=== PATIENT | female | born 2000 | race Caucasian/White ===

== ENCOUNTER 2020-01-30 20:46 | Emergency (ER) | payer MEDICAID, SELFPAY ==
[2020-01-30 21:05] VITALS: BP 130/85; PULSE 82; RESP 16; TEMP 37; O2SAT 98
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
[2020-01-30] MEDS: traMADol HCL 50 MG TABLET PO (21:32)
[2020-01-30 21:34] VITALS: BP 128/85; PULSE 80; RESP 20; O2SAT 99
== END 2020-01-30 21:36 | disposition home or self-care (01) ==
PROVIDERS: Emergency Provider Family Medicine; PCP Family Medicine
DX: H92.02 Otalgia, left ear (principal); Z86.2 Personal history of diseases of the blood and blood-forming organs and certain disorders involving the immune mechanism
CPT/HCPCS: 99283; A9270

== ENCOUNTER → 2020-02-15 08:02 | Outpatient (CLI) | payer OTHER, SELFPAY ==
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
== END ==
PROVIDERS: PCP Family Medicine; Visit Provider Orthopaedic Surgery
DX: S49.92XA Unspecified injury of left shoulder and upper arm, initial encounter (principal); X58.XXXA Exposure to other specified factors, initial encounter
CPT/HCPCS: 23350; 73222; 77002; A9577; Q9966

== ENCOUNTER 2020-06-04 10:12 | Emergency (ER) | payer OTHER, SELFPAY ==
[2020-06-04] VITALS (29 sets, daily range): BP systolic 108–151; BP diastolic 65–94; PULSE 76–96; RESP 0–26; TEMP 36.7; O2SAT 98–100
--- NOTE | ~2020-06-04 | XR_ITS ---
EXAMINATION: XR chest 1V portable DATE: 06/04/2020 12:42 INDICATION: Shortness of breath TECHNIQUE: frontal view of the chest was obtained. COMPARISON: None FINDINGS: The lungs are clear with no focal airspace opacities, pulmonary edema, pleural effusion or pneumothor ax. The cardiomediastinal silhouette is normal. Visualized bones and soft tissues are unremarkable. IMPRESSION: 1. Normal chest radiograph. Reviewed, dictated and finalized at location A. TOLOGIST IMPRESSION: 1. Normal chest radiograph.
--- NOTE | 2020-06-04 10:42 | ECG_ITS ---
Measurements Intervals [place] Rate: 85 P: 37 AR: 143 QRS: -9 QRSD: 97 T: 17 QT: 365 QTc: 434 Interpretive Statements SINUS RHYTHM DELAYED PRECORDIAL R/S TRANSITION BASELINE ARTIFACT- I, II, AVR, V1 BORDERLINE ECG Electronically Signed On 06-04-2020 14:01:38 SWITCHBOARD OPERATOR RECEPTIONIST by Sunny Paulson D.O.
--- NOTE | 2020-06-04 12:40 | ED.URI ---
HPI - URI/Sore Throat General Chief Complaint: Upper Respiratory Infection Stated Complaint: URI SYMPTOMS Time Seen by Provider: 06/04/20 10:56 Source: patient Mode of arrival: ambulatory Limitations: no limitations History of Present Illness HPI Narrative: Patient is a 20-year-old female who presents complaining of chest tightness, shortness of breath and cough. She reports exposure to Covid last week. She reports negative Covid test on 05/23 and reports symptoms resolved. She reports no symptoms of chest tightness, cough, shortness of breath and body aches started approximately 48 hours ago. She denies fever. She denies other complaints. MD elicited complaint: cough Related Data Allergies Allergy/AdvReac Type Severity Reaction Status Date / Time No Known Allergies Allergy Verified 03/18/20 15:33 Review of Systems Review of Systems: Narrative: CONSTITUTIONAL: Denies fever, chills, or sweats. EYES: Denies visual changes, redness, or discharge. ENT: Denies rhinorrhea, congestion, sore throat, or otalgia. CARDIOVASCULAR: Denies chest pain, palpitations, or edema. RESPIRATORY: Reports cough, dyspnea and chest tightness. GASTROINTESTINAL: Denies abdominal pain, nausea, vomiting, or diarrhea. GENITOURINARY: Denies dysuria or hematuria. SKIN: Denies rash or itching. MUSCULOSKELETAL: Denies back pain, joint pain, or myalgia. NEUROLOGIC: Denies headache, numbness, dizziness, or weakness. PSYCHIATRIC: Denies anxiety or depression. 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 HEAD: Normocephalic, atraumatic. EYES: EOMI. No redness or drainage. Conjunctiva are normal. ENT: Mucous membranes pink and moist. NECK: AROM. Supple. No lymphadenopathy. CHEST: No respiratory distress. Clear to auscultation. HEART: Regular rate and rhythm. No murmur appreciated. EXTREMITIES: Normal range of motion. No edema. SKIN: Warm, dry, no rash. NEURO: No focal deficits. Alert and oriented x3. Gait steady. PSYCH: Normal affect. No signs of depression or anxiety. Course Vital Signs Vital signs: Vital Signs Pulse Oximetry 99 06/04/20 10:32 Temperature 36.7 C 06/04/20 10:37 Pulse Rate 81 06/04/20 12:30 Respiratory Rate 20 06/04/20 12:30 Blood Pressure 111/65 06/04/20 12:16 Pulse Oximetry 100 06/04/20 12:30 Reviewed MDM - URI/Sore Throat MDM Narrative Medical decision making narrative: Patient's EKG and chest x-ray are normal. Patient had Covid testing performed in the emergency department. Patient is aware of the need to quarantine until Covid testing results return. Patient's vital signs are stable at this time, patient is aware that if she has increased chest pain or shortness of breath, that she is to return to the emergency department immediately for further evaluation. Patient is stable for discharge home with outpatient follow-up as discussed. Differential Diagnosis Differential diagnosis: Likely upper respiratory infection, viral infection, influenza and other (Covid) Lab Data Labs: Lab Results 06/04/20 Range/Unit
[2020-06-04 20:08] LABS: SARS-CoV-2 RNA PCR Positive
== END 2020-06-04 13:49 | disposition home or self-care (01) ==
PROVIDERS: Emergency Provider Nurse Practitioner; PCP Family Medicine
DX: U07.1 COVID-19 (principal); J06.9 Acute upper respiratory infection, unspecified; Z86.2 Personal history of diseases of the blood and blood-forming organs and certain disorders involving the immune mechanism; R94.31 Abnormal electrocardiogram [ECG] [EKG]
CPT/HCPCS: 71045; 93005; 99283; C9803; U0003

== ENCOUNTER 2020-08-17 09:19 | Outpatient (CLI) | payer OTHER, SELFPAY | END 2020-08-17 09:20 | disposition home or self-care (01) | LOC: ANHCOVIDVC 09:19 | PROVIDERS: PCP Family Medicine | DX: Z23 Encounter for immunization (principal) | CPT/HCPCS: 0001A; 91300 ==

== ENCOUNTER 2020-09-07 09:17 | Outpatient (CLI) | payer OTHER, SELFPAY | END 2020-09-07 09:18 | disposition home or self-care (01) | LOC: ANHCOVIDVC 09:17 | PROVIDERS: PCP Family Medicine | DX: Z23 Encounter for immunization (principal) | CPT/HCPCS: 0002A; 91300 ==

== ENCOUNTER 2020-12-08 03:17 | Emergency (ER) | payer OTHER, SELFPAY ==
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
[2020-12-08 03:28] VITALS: BP 127/85; PULSE 85; RESP 16; TEMP 36.7; O2SAT 97
[2020-12-08] MEDS: IPRATROPIUM BR 0.02% INH SOLN 0.5 MG/2.5 ML VIAL INHALATION (03:50)
[2020-12-08] MEDS: ALBUTEROL SULFATE NEB 2.5 MG/0.5 ML INH 5 MG INHALATION (03:50)
[2020-12-08 03:51] VITALS: PULSE 90; RESP 20
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
[2020-12-08 03:57] VITALS: PULSE 73; RESP 16
[2020-12-08 05:34] VITALS: BP 125/82; PULSE 85; RESP 16; O2SAT 98
== END 2020-12-08 05:35 | disposition home or self-care (01) ==
PROVIDERS: Emergency Provider Emergency Medicine; PCP Family Medicine
DX: S16.1XXA Strain of muscle, fascia and tendon at neck level, initial encounter (principal); V40.6XXA Car passenger injured in collision with pedestrian or animal in traffic accident, initial encounter
CPT/HCPCS: 70450; 72125; 94640; 99284; L0140

== ENCOUNTER → 2021-03-29 02:35 | Outpatient (CLI) | payer OTHER, SELFPAY ==
[2021-03-29 17:35] LABS: SARS-CoV-2 RNA PCR Negative
== END ==
PROVIDERS: PCP Family Medicine; Visit Provider Physician Assistant Medical
DX: R05.9 Cough, unspecified (principal); R09.81 Nasal congestion; J34.89 Other specified disorders of nose and nasal sinuses
CPT/HCPCS: C9803; U0003; U0005

== ENCOUNTER 2021-08-18 10:38 | Outpatient (CLI) | payer OTHER, SELFPAY ==
--- NOTE | ~2021-08-18 | US_ITS ---
EXAMINATION: US pelvic complete DATE: 08/18/2021 11:42 INDICATION: Abnormal uterine bleeding Comparison:No prior studies for comparison. TECHNIQUE: Multiple transabdominal sonographic images of the pelvis performed. FINDINGS: The uterus measures 3.9 x 2.9 x 1.9 cm. The endometrial complex measures 5.5 mm. The right ovary measures 3.9 x 2.9 x 1.9 cm and the left ovary measures 2.2 x 1.8 x 1 cm. There is a 2.8 cm right ovarian cyst. There are small follicles in each ovary. Normal doppler signal in both ova sushma. There is no free fluid in the pelvis. There are no abnormal masses seen on either side. IMPRESSION: 1. Right ovarian cyst measuring 2.8 cm. Reviewed, dictated and finalized at location B.
== END 2021-08-18 10:39 | disposition home or self-care (01) ==
PROVIDERS: PCP Family Medicine; Visit Provider Nurse Practitioner
DX: N93.8 Other specified abnormal uterine and vaginal bleeding (principal); N83.201 Unspecified ovarian cyst, right side
CPT/HCPCS: 76856

== ENCOUNTER 2021-09-29 10:39 | Outpatient (CLI) | payer OTHER, SELFPAY ==
--- NOTE | ~2021-09-29 | US_ITS ---
EXAMINATION: US pelvic complete w TV DATE: 09/29/2021 11:36 INDICATION: Right ovarian cyst TECHNIQUE: Multiple transabdominal and endovaginal sonographic images of the pelvis were obtained. COMPARISON: 08/18/2021 FINDINGS: The uterus measures 10.1 x 4.8 x 3.3 cm. The endometrial complex measures 4 mm. The right o vary measures 2.2 x 1.7 x 1.2 cm. The left ovary measures 2.5 x 1.1 x 1.6 cm. There is normal vascula r flow in the ovaries. There is no free fluid in the pelvis. IMPRESSION: 1. Normal pelvic ultrasound. Reviewed, dictated and finalized at location B.
== END 2021-09-29 10:40 | disposition home or self-care (01) ==
LOC: ANHIMG 10:41
PROVIDERS: PCP Family Medicine; Visit Provider Obstetrics & Gynecology Gynecology
DX: N83.201 Unspecified ovarian cyst, right side (principal)
CPT/HCPCS: 76830; 76856

== ENCOUNTER 2022-06-11 08:58 | Outpatient (CLI) | payer OTHER, SELFPAY ==
--- NOTE | ~2022-06-11 | US_ITS ---
EXAMINATION: US abdomen limited DATE: 06/11/2022 09:35 INDICATION: Right upper quadrant pain TECHNIQUE: Multiple grayscale and Doppler ultrasound images of the abdomen were obtained. COMPARISON: None available FINDINGS: The head and body of the pancreas are normal. The pancreatic tail is obscured by bowel gas. The liver is normal with normal echogenicity and echotexture. No surface nodularity. Normal hepatope daljit flow in the main portal vein. The gallbladder is normal with no abnormal wall thickening, pericho lecystic fluid or stones. The normal common bile duct measures 2 mm. There was no sonographic Brantley sign. IMPRESSION: 1. Normal sonographic study of the gallbladder. Reviewed, dictated and finalized at location B. [employer]
== END 2022-06-11 08:59 | disposition home or self-care (01) ==
PROVIDERS: PCP Family Medicine; Visit Provider Family Medicine
DX: R10.11 Right upper quadrant pain (principal)
CPT/HCPCS: 76705

== ENCOUNTER 2022-06-11 09:52 | Outpatient (CLI) | payer OTHER, SELFPAY ==
[2022-06-11 17:19] LABS: Kit Draw Collected
== END 2022-06-11 09:53 | disposition home or self-care (01) ==
PROVIDERS: PCP Family Medicine; Referring Provider Nurse Practitioner; Visit Provider Family Medicine
DX: Z00.00 Encounter for general adult medical examination without abnormal findings (principal); R19.4 Change in bowel habit
CPT/HCPCS: 36415

== ENCOUNTER 2022-12-29 19:27 | Emergency (ER) | payer OTHER, SELFPAY ==
--- NOTE | ~2022-12-29 | CT_ITS ---
EXAMINATION: CT abdomen pelvis w con DATE: 12/30/2022 00:34 INDICATION: Abdominal pain, right lower quadrant, for one day TECHNIQUE: Computed tomography (CT) of the abdomen and pelvis was performed with 100 CC Omnipaque 350 intravenous contrast. Automated exposure control and iterative reconstruction technique were employe d. Exam dose: 1094.71 mGy-cm total exam DLP. COMPARISON: 06/21/2022 Limited abdominal ultrasound examination, reported normal FINDINGS: The lung bases are clear. Normal heart size. No pericardial or pleural effusion. The gallbladder is contracted. No bile duct or pancreatic duct dilatation. No hepatic, splenic, pancr eatic, and adrenal or renal space-occupying mass lesion. No urinary tract calculus or hydroureteronep hrosis is detected. The urinary bladder, uterus and adnexal areas are unremarkable. There is trace high density free fluid in the pelvic cul-de-sac, probably ambulatory related hemorrha ge. Consider correlation with beta hCG level and/or pelvic ultrasound examination to exclude ectopic gestation with hemorrhage. Normal caliber of the abdominal aorta. No intraperitoneal or retroperitoneal or pelvic mass lesion or adenopathy or ascites. No bowel obstruction, bowel wall thickening, pneumatosis or intraperitoneal free air. No evidence of appendicitis. Included skeletal structures are unremarkable. IMPRESSION: Mild high density fluid in the posterior cul-de-sac, possibly related to alveolar jan h emorrhage. Recommend clinical correlation and possibly beta hCG and/or pelvic ultrasound to exclude e ctopic . Reviewed, dictated and finalized at Location A. Reviewed, dictated and finalized at location A. IMPRESSION: Mild high density fluid in the posterior cul-de-sac, possibly rela ryan to alveolar jan hemorrhage. Recommend clinical correlation and possibly be ta hCG and/or pelvic ultrasound to exclude ectopic .
[2022-12-29 19:28] VITALS: BP 118/81; PULSE 88; RESP 18; TEMP 36.9; O2SAT 99
[2022-12-29 19:45] LABS: Basophils Percent Auto 0.3 % (0.2-1.2); Eosinophils Absolute Auto 0.1 K/mm3 (0-0.3); Eosinophils Percent Auto 1.5 % (0-4.4); Hematocrit 39.6 % (37.0-47.0); Hemoglobin 13.9 g/dL (12.0-15.0); Immature Granulocyte Absolute 0.01 K/mm3 (0.00-0.031); Immature Granulocyte Percent A 0.2 % (0-0.5); Lymphocytes Absolute Auto 2.34 K/mm3 (0.9-3.2); Lymphocytes Percent Auto 40.1 % (18.3-44.2); Mean Corpuscular HGB Conc 35.1 g/dl (32-36); Mean Corpuscular Hemoglobin 28.5 pg (26-34); Mean Corpuscular Volume 81.1 fl (80-100); Mean Platelet Volume 9.6 fl (7.4-10.4); Monocytes Absolute Auto 0.4 K/mm3 (0.1-0.6); Monocytes Percent Auto 7.5 % (2.6-8.5); Neutrophils Absolute Auto 2.9 K/mm3 (1.3-6.7); Neutrophils Percent Auto 50.4 % (45.5-73.1); Platelet Count Result 225 k/mm3 (150-375); Red Blood Count 4.88 M/mm3 (4.2-5.4); White Blood Count 5.8 K/mm3 (4.5-10.0)
[2022-12-29 19:55] LABS: Alanine Aminotransferase 33 U/L (6-35); Albumin Level 4.5 g/dL (3.5-5.1); Alkaline Phosphatase 48 U/L (38-126); Anion Gap 10 mmol/L (8-16); Aspartate Amino Transferase 23 U/L (14-36); Bilirubin,Total 0.2 mg/dL (0.2-1.3); Blood Urea Nitrogen 13 mg/dL (7-17); Calcium 8.9 mg/dL (8.4-10.2); Carbon Dioxide 24 mmol/L (22-30); Chloride 105 mmol/L (98-107); Estimated CRCL calculation 132 ml/min; Estimated Glomerular Filt Rate > 60; Glucose 111 mg/dL (65-110); Lipase 354 U/L (23-300); Potassium 3.8 mmol/L (3.4-5.0); Sodium 139 mmol/L (137-145)
[2022-12-29 22:59] VITALS: BP 135/81; PULSE 79; RESP 16; O2SAT 99
[2022-12-29 23:17] LABS: Appearance Urine Clear (Clear); Bilirubin Urine Negative (Negative); Blood Urine Negative (Negative); Color Urine Yellow (Yellow); Glucose Urine UA Negative (Negative); Ketones Urine Negative (Negative); Leukocyte Esterase Ur Negative LEU/UL (Negative); Nitrate Urine Negative (Negative); Protein Urine Negative (Negative); Specific Grav Ur 1.023 (1.001-1.035)
[2022-12-29 23:46] LABS: Add Urine Microscopic? NO
[2022-12-29] MEDS: ONDANSETRON INJ 4 MG/2 ML VIAL IV PUSH (23:46)
[2022-12-29] MEDS: DICYCLOMINE HCL INJ 20 MG/2 ML VIAL IM (23:46)
[2022-12-29] MEDS: SODIUM CHLORIDE 0.9% IV 1,000 ML 999 ML IV CONT (23:46)
[2022-12-29 23:55] VITALS: BP 114/80; PULSE 62; RESP 16; O2SAT 100
--- NOTE | 2022-12-30 00:22 | PC.NURSE ---
Pt to CT via wheelchair at this time.
[2022-12-30 01:08] VITALS: BP 112/71; PULSE 62; RESP 16; O2SAT 98
[2022-12-30 02:42] VITALS: BP 110/82; PULSE 71; RESP 16; O2SAT 99
--- NOTE | 2022-12-30 02:49 | ED.GENADULT ---
HPI - General Adult General Chief complaint: Abdominal Pain Stated complaint: abdominal pain Time Seen by Provider: 12/29/22 22:57 History of Present Illness HPI narrative: Patient 49-year-old female presents emerged from with chief complaint of abdominal pain. Patient reports she has history of IBS and reports that she feels as though she is not having complete emptying of her bowels today the patient reports that her abdomen is cramping in her feels very uncomfortable the patient reports no vomiting denies diarrhea reports that she had a bowel movement but did not feel as though she had a satisfactory complete elimination during the defecation Related Data Home Medications Medication Instructions Recorded Confirmed escitalopram oxalate 5 mg tablet 5 mg PO DAILY 07/10/22 11/06/22 (Lexapro) Allergies Allergy/AdvReac Type Severity Reaction Status Date / Time No Known Allergies Allergy Verified 11/06/22 10:03 Review of Systems Review of Systems: A 10 system review of systems was completed on the patient and is negative except for what is stated in the HPI. Nursing and ancillary documentation was reviewed. [facility] Past Medical History Medical History Abdominal pain Anemia Contraceptive surveillance, unspecified (12/12/17) COVID-19 symptomatic test : 1.2.21 positive Encounter for screening for infections with predominantly sexual mode of transmission Left shoulder pain Mild concussion [id number] condition 1.2.2020 Family History Family History Mother Family history of mental disorder Hypertension Asthma Family history of allergic disorder Father Family history of alcoholism Social History Social History Smoking status: Never smoker Alcohol intake: current Drinks per week: 2 Substance use: never Lack of Transportation: No Lack of Food: Never True Current Housing: I Have Housing Concerned About Future Housing: No Difficulty Paying Gas/Electric Bills: No Difficulty Paying for Meds: No Currently Unemployed: No Education: Associate Degree Difficulty w/ Childcare or Family Care: No Living arrangements: with family Additional living arrangements comments: Mom and cousin Occupation/Education: occupation Additional occupation/education comments: [employer] Gender identity (if verbalized by the patient): Female Exam Narrative: GENERAL: Well-appearing, well-nourished, and in no acute distress. HEAD: Normocephalic, atraumatic. EYES: PERRLA and EOMI. ENT: Nares clear, no rhinorrhea or epistaxis. Mucous membranes moist. NECK: Supple. CHEST: Clear to auscultation. No respiratory distress. HEART: Regular rate and rhythm. No murmur heard. Normal peripheral pulses. ABDOMEN: Soft, diffusely tender to palpation, nondistended, normal active bowel sounds. EXTREMITIES: Normal range of motion. No edema. SKIN: Warm, dry, no rash. NEURO: No focal deficits. Alert and oriented x3. PSYCH: Normal mood and affect. Course Vital Signs Vital signs: Vital Signs Temperature 36.9 C 12/29/22 19:28 Pulse Rate 88 12/29/22 19:28 Respiratory Rate 18 12/29/22 19:28 Blood Pressure 118/81 12/29/22 19:28 Pulse Oximetry 99 12/29/22 19:28 Oxygen Delivery Room Air 12/29/22 19:28 Temperature 36.9 C 12/29/22 19:28 Pulse Rate 57 L 12/30/22 04:04 Respiratory Rate 16 12/30/22 04:04 Blood Pressure 118/73 12/30/22 04:04 Pulse Oximetry 100 12/30/22 04:04 Oxygen Delivery Room Air 12/29/22 19:28 Medical Decision Making [facility] Narrative Medical decision making narrative: Differential diagnosis includes constipation, bowel obstruction, IBS, UTI Laboratory studies were obtained which showed a normal urinalysis electrolytes are within normal limit
[2022-12-30 04:04] VITALS: BP 118/73; PULSE 57; RESP 16; O2SAT 100
== END 2022-12-30 04:44 | disposition home or self-care (01) ==
PROVIDERS: Emergency Medicine; Emergency Provider Emergency Medicine; PCP Family Medicine
DX: R10.84 Generalized abdominal pain (principal); K58.9 Irritable bowel syndrome, unspecified; Z86.16 Personal history of COVID-19; Z86.2 Personal history of diseases of the blood and blood-forming organs and certain disorders involving the immune mechanism
CPT/HCPCS: 36415; 74177; 80053; 81003; 81025; 83690; 85025; 96361; 96372; 96374; 99284; J0500; J2405; J7030; Q9967